=== PATIENT | female | born 1945 | race African-American/Black ===

== ENCOUNTER 2017-06-19 13:43 | Emergency (ER) | payer MEDICARE ==
[~2017-06-19] VITALS: Ht 162.6 cm; Wt 86.2 kg
[~2017-06-19 13:43] MED LIST: AMLO10TA2 PO; LOVA20TA2 PO
[2017-06-19 14:53] LABS: BASO # 0.1 x10^3/uL (0.0-0.2); BASO % 1 % (0-3); EOS % 3 % (0-3); HEMATOCRIT 35.9 % (36.0-47.0); HEMOGLOBIN 11.9 g/dL (12.0-15.5); LYMPH # 0.8 x10^3/uL (1.0-4.8); LYMPH % 22 % (24-48); MEAN CORPUSCULAR HEMOGLOBIN 29 pg (25-35); MEAN CORPUSCULAR HGB CONC 33 g/dL (31-37); MEAN CORPUSCULAR VOLUME 88 fL (79-100); MONO % 12 % (0-9); NEUT % 63 % (31-73); PLATELET COUNT 272 x10^3/uL (140-400); RED BLOOD COUNT 4.09 x10^6/uL (3.50-5.40); WHITE BLOOD COUNT 3.9 x10^3/uL (4.0-11.0)
[2017-06-19 15:07] VITALS: BP 174/70
[2017-06-19 15:11] LABS: CALCIUM 8.6 mg/dL (8.5-10.1); CREATININE 1.3 mg/dL (0.6-1.0); GFR 48.9; POTASSIUM 3.9 mmol/L (3.5-5.1)
--- NOTE | 2017-06-19 15:19 | ED.ADGEN ---
Past Medical History Past Medical History: Diabetes-Type II, High Cholesterol, Hypertension, Stroke Past Surgical History: No Surgical History Alcohol Use: None Drug Use: None Adult General Chief Complaint Chief Complaint: LOWER EXTREMITY SWELLING HPI HPI Patient is a 72 year old [woman, with history of hypertension, who presents emergency Department with complaints of recurrent swelling of the bilateral lower extremities. Patient states that the swelling is slightly worse on the left lower extremity more so than the right, but is bilateral, she states that it will get worse throughout the day, and then resolved at night. Patient states that she is concerned that her blood pressure medication is the source of the swelling, as the swelling first started about a week ago, after her blood pressure medication was adjusted, she is currently taking amlodipine/ benazepril, 10mg/40mg. she states she has not taken her blood pressure medication yesterday or this morning due to concerns that it is causing the swelling. She states currently she is not experiencing very much swelling, as as result overnight. She denies any chest pain, any shortness of breath, any nausea or vomiting, any other swelling, any rashes, any recent travel or surgery , history of DVT or PE, any other complaints. Review of Systems Review of Systems Constitutional: Denies fever or chills. [] Eyes: Denies change in visual acuity. [] HENT: Denies nasal congestion or sore throat. [] Respiratory: Denies cough or shortness of breath. [] Cardiovascular: Denies chest pain, complaining of edema in the bilateral lower extremities. GI: Denies abdominal pain, nausea, vomiting, bloody stools or diarrhea. [] : Denies dysuria. [] Musculoskeletal: Denies back pain or joint pain. [] Integument: Denies rash. [] Neurologic: Denies headache, focal weakness or sensory changes. [] Endocrine: Denies polyuria or polydipsia. [] Lymphatic: Denies swollen glands. [] Psychiatric: Denies depression or anxiety. [] Allergies Allergies Allergies Coded Allergies Type Severity Reaction Last Updated Verified No Known Drug Allergies 06/13/15 No Physical Exam Physical Exam Constitutional: Well developed, well nourished, no acute distress, non-toxic appearance. [] HENT: Normocephalic, atraumatic, bilateral external ears normal, oropharynx moist, no oral exudates, nose normal. [] Eyes: PERRLA, EOMI, conjunctiva normal, no discharge. [] Neck: Normal range of motion, no tenderness, supple, no stridor. [] Cardiovascular:Heart rate regular rhythm, no murmur [, S1, S2, rubs or gallops.] Lungs & Thorax: Bilateral breath sounds clear to auscultation , no wheezing, rhonchi, rales. No chest or crepitus or tenderness. [] Abdomen: Bowel sounds normal, soft, no tenderness, no rebound, rigidity, no guarding, no masses, no pulsatile masses. [] Skin: Warm, dry, no erythema, no rash. [] Back: No tenderness, no CVA tenderness. [] Extremities: No tenderness, no cyanosis, no clubbing, ROM intact, trace pedal edema bilaterally, no pitting anterior tibial edema at this time. [] Negative Tia's sign. Neurologic: Alert and oriented X 3, normal motor function, normal sensory function, no focal deficits noted. [] Psychologic: Affect normal, judgement normal, mood normal. [] Current Patient Data Vital Signs Vital Signs Date Time Temp Pulse Resp B/P (MAP) Pulse Ox O2 Delivery O2 Flow Rate FiO2 06/19/17 15:07 54 19 174/70 (104) 100 Room Air 06/19/17 14:06 98.0 98.0 Lab Values Laboratory Tests Test 06/19/17 14:44 White Blood Count 3.9 x10^3/uL (4.0-11.0) L Red Blood Count 4.09 x10^6/uL (3.50-5.40) Hemoglobin 11.9 g/dL (12.0-15.5) L Hematocrit 35.9 % (36.0-47.0) L Mean Corpuscular Volume 88 fL (79-100) Mean Corpuscular Hemoglobin 29 pg (25-35) Mean Corpuscular Hemoglobin Concent 33 g/dL (31-37) Red Cell Distribution Width 14.0 % (11.5-14.5) Platelet Count 272 x10^3/uL (140-400) Neutrophils (%) (Auto) 63 % (31-73) Lymphocytes (%) (Auto) 22 % (24-48) L Monocytes (%) (Auto) 12 % (0-9) H Eosinophils (%) (Auto) 3 % (0-3) Basophils (%) (Auto) 1 % (0-3) Neutrophils # (Auto) 2.4 x10^3uL (1.8-7.7) Lymphocytes # (Auto) 0.8 x10^3/uL (1.0-4.8) L Monocytes # (Auto) 0.5 x10^3/uL (0.0-1.1) Eosinophils # (Auto) 0.1 x10^3/uL (0.0-0.7) Basophils # (Auto) 0.1 x10^3/uL (0.0-0.2) Sodium Level 142 mmol/L (136-145) Potassium Level 3.9 mmol/L (3.5-5.1) Chloride Level 108 mmol/L (98-107) H Carbon Dioxide Level 29 mmol/L (21-32) Anion Gap 5 (6-14) L Blood Urea Nitrogen 14 mg/dL (7-20) Creatinine 1.3 mg/dL (0.6-1.0) H Estimated GFR (Cockcroft-Gault) 48.9 Glucose Level 139 mg/dL (70-99) H Calcium Level 8.6 mg/dL (8.5-10.1) SR-Mjf-P-Type Natriuretic Peptide 146 pg/mL (0-124) H Laboratory Tests 06/19/17 14:44 Laboratory Tests 06/19/17 14:44 EKG EKG EC: Sinus rhythm, heart rate 59 beats minute, upright axis, QTC of 432, MO 172, QRS of 90, no ST elevations or depressions, contour abnormalities noted in the lateral leads, with mild baseline artifact, abnormal ECG, does not meet any criteria. [] Radiology/Procedures Radiology/Procedures Not indicated. [] Course & Med Decision Making Course & Med Decision Making Pertinent Labs and Imaging studies reviewed. (See chart for details) Patient well-appearing, with trace pedal edema noted, no tenderness in the calves, history, examination findings that are concerning for occult DVT or other abnormality. I did discuss with patient that potentially medications could cause swelling extremities, and recommended that she continue to take medications as directed by her primary care provider, she voiced understanding. We proceeded with basic laboratory studies and a proBNP, which revealed a creatinine of 1.3, which is consistent with patient's prior, and no other concerning findings. I did speak with Dr. Kovacs, the patient's primary care physician, and reviewed laboratory studies and examination. She requests the patient be instructed to discontinue the amlodipine/benzepril, as patient's blood pressures remain stable emergency department, 150s to 160s over 70s, and patient is asymptomatic, she requests the patient follow-up with with her in the office tomorrow for evaluation. She states that if the patient is unable to follow-up tomorrow, the patient be given a prescription for losartan 50 mg to be taken once daily, to be used if follow-up is delayed. I did discuss this at length with patient at bedside, patient voiced agreement and understanding with this plan, she was also given instructions and precautions, to return for concerning symptoms, which she voiced understanding as well. Patient discharged home in stable condition with prescription and plan as stated. Dragon Disclaimer Dragon Disclaimer This electronic medical record was generated, in whole or in part, using a voice recognition dictation system. Departure Impression: Primary Impression: Pedal edema Disposition: 01 HOME, SELF-CARE Condition: STABLE Scripts Losartan Potassium (LOSARTAN POTASSIUM) 50 Mg Tablet 50 MG PO DAILY, #14 TAB Prov: NANCI MESA DO 06/19/17 NANCI MESA DO Jun 19, 2017 15:19
[2017-06-19] MEDS ORDERED: LOSA50TA6 PO (15:57)
--- NOTE | 2017-06-20 06:09 | EKG ---
[facility] [address] [place] [address] Test Date: 2017-06-19 Test Time: 14:32:32 Pat Name: KEVIN ROMERO Department: Room: Gender: F Early Morning: : 1945 Requested By: NANCI MESA Order Number: [id number] Reading MD: Jevon Frye Measurements Intervals [place] Rate: 59 P: 27 NH: 172 QRS: 10 QRSD: 90 T: 87 QT: 432 QTc: 432 Interpretive Statements SINUS RHYTHM T ABNORMALITY IN HIGH LATERAL LEADS RI6.01 Unconfirmed report Compared to ECG 06/13/2015 12:43:49 No significant changes Electronically Signed On 06-20-2017 17:36:58 CDT by Jevon Frye
== END 2017-06-19 16:25 | disposition home or self-care (01) ==
LOC: ER 13:43
DX: R60.0 Localized edema (principal); E11.9 Type 2 diabetes mellitus without complications; E78.00 Pure hypercholesterolemia, unspecified; I10 Essential (primary) hypertension; Z86.73 Personal history of transient ischemic attack (TIA), and cerebral infarction without residual deficits
CPT/HCPCS: 36415; 80048; 83880; 85027; 93005; 99285-25

== ENCOUNTER → 2017-07-08 | Outpatient (CLI) | payer MEDICARE ==
[2017-06-19 15:07] VITALS: BP 174/70
[~2017-07-08] MED LIST changes: +LOSA50TA6 PO
--- NOTE | 2017-07-08 16:25 | CARD ---
APPROVED REPORT EXAM: Two-dimensional and M-mode echocardiogram with Doppler and color Doppler. Other Information Quality : GoodHR: 57bpm Rhythm : Bradycardia INDICATION Swelling of lower extremity 2D DIMENSIONS RVDd3.3 (2.9-3.5cm)Left Atrium(2D)3.8 (1.6-4.0cm) IVSd1.5 (0.7-1.1cm)Aortic Root(2D)2.8 (2.0-3.7cm) LVDd4.4 (3.9-5.9cm)LVOT Diameter2.2 (1.8-2.4cm) PWd1.2 (0.7-1.1cm)LVDs2.8 (2.5-4.0cm) FS (%) 35.8 %SV56.9 ml LVEF(%)65.5 (>50%) Aortic Valve AoV Peak Romel.145.4cm/sAoV VTI28.8cm AO Peak GR.8.5mmHgLVOT Peak Romel.129.3cm/s AO Mean GR.4mmHgAVA (VMAX)3.34cm2 Mitral Valve MV E Cftpadnj64.2cm/sMV E Peak Gr.3mmHg MV DECEL [id number] A Rakfvijp46.6cm/s MV E Mean Gr.1mmHgE/A Ratio0.6 MV A [id number] Pulmonary Valve PV Peak Lyfedsen29.5cm/s Tricuspid Valve TR P. Vfpshana317dm/sTR Peak Gr.26mmHg Pulmonary Vein S1 Rigyhsgj51.3cm/sD2 Qvoazrcm97.6cm/s PVa [id number] LEFT VENTRICLE The left ventricle is normal size. There is normal left ventricular wall thickness. The left ventricu lar systolic function is normal and the ejection fraction is within normal range. The Ejection Fracti on is 60-65%. There is normal LV segmental wall motion. Transmitral Doppler flow pattern is Grade I-a bnormal relaxation pattern. RIGHT VENTRICLE The right ventricle is normal size. There is normal right ventricular wall thickness. The right ventr icular systolic function is normal. ATRIA The left atrium size is normal. The right atrium size is normal. The interatrial septum is intact wit h no evidence for an atrial septal defect or patent foramen ovale as noted on 2-D or Doppler imaging. AORTIC VALVE The aortic valve is mildly thickened. The aortic valve is trileaflet. Doppler and Color Flow revealed trace to mild aortic regurgitation. There is no significant aortic valvular stenosis. MITRAL VALVE The mitral valve leaflets are mildly calcified. There is no evidence of mitral valve prolapse. There is no mitral valve stenosis. Doppler and Color Flow revealed no mitral valve regurgitation noted. TRICUSPID VALVE Doppler and Color Flow revealed mild tricuspid regurgitation. The pulmonary artery systolic pressure is estimated at 29 mmHg. There is no pulmonary hypertension. PULMONIC VALVE The pulmonic valve is not well visualized but appears to open adequately. Doppler and Color Flow reve aled mild pulmonic valvular regurgitation. There is no pulmonic valvular stenosis by spectral Doppler . GREAT VESSELS The aortic root is normal in size. The ascending aorta is normal in size. The pulmonary artery is nor mal. The IVC is normal in size and collapses >50% with inspiration. PERICARDIAL EFFUSION There is no evidence of significant pericardial effusion. Critical Notification Critical Value: No <Conclusion> The left ventricular systolic function is normal and the ejection fraction is within normal range. Th e Ejection Fraction is 60-65%. There is normal LV segmental wall motion.
== END | disposition home or self-care (01) ==
LOC: ECHO 12:31
PROVIDERS: ATTEND Internal Medicine
DX: I37.1 Nonrheumatic pulmonary valve insufficiency (principal); I07.1 Rheumatic tricuspid insufficiency; M79.89 Other specified soft tissue disorders
CPT/HCPCS: 93306

== ENCOUNTER → 2019-06-01 | Day surgery (SDC) | payer MEDICARE ==
[~2019-06-01] MED LIST changes: -AMLO10TA2 PO; +AMLO10TA8 PO; +IV RINGERS,LACTATED 1000ML 1,000 ML IV SCH; +LIDOCAINE 1% PF 2 ML VIAL. ID PRN; +LIDOCAINE 2% PF 5 ML VIAL. ONE; +LOSA-73 PO; -LOSA50TA6 PO; +MIDAZOLAM HCL/PF 2 MG/2 ML VIAL. IV PRN; +PROPOFOL 20 ML IV ONE; +fentaNYL PF VIAL 100 MCG/2 ML VIAL IV PRN
--- NOTE | 2019-06-01 10:14 | CONS ---
DATE OF CONSULTATION: 06/01/2019 GASTROINTESTINAL CONSULTATION REASON FOR CONSULTATION: Colorectal screening. REFERRING PHYSICIAN: Belinda MORLEY HISTORY OF PRESENT ILLNESS: This is a 74-year-old -[place] female whose past medical history is significant for hypertension, status post CVA 8 years ago, was seen for colonoscopy. Bowel habits are regular without diarrhea or constipation. There has been no melena and/or hematochezia. Weight and appetite are stable. There has been no diarrhea or constipation. No family history of colon cancer is noted. She is otherwise without additional complaints. PAST MEDICAL HISTORY: Hypertension, hyperlipidemia, status post CVA. MEDICATIONS: Include amlodipine 10 mg daily and Lovastatin 20 mg daily. ALLERGIES: None. SOCIAL HISTORY: She is retired: Nonsmoker, nondrinker. FAMILY HISTORY: Noncontributory. REVIEW OF SYSTEMS: HEENT: There is no decrease in visual acuity issues. CARDIAC: There is a history of hypertension. ENDOCRINE: History of hyperlipidemia. NEUROLOGIC: History of CVA. PSYCHIATRIC: No mood swings, depression, insomnia. GASTROINTESTINAL: See history of present illness. HEMATOLOGIC: No bleeding, bruising, coagulopathy. DERMATOLOGIC: No skin rashes or pruritus. PHYSICAL EXAMINATION: GENERAL: Reveals a well-nourished, well-developed -[place] female, who is alert, cooperative, in no acute distress. VITAL SIGNS: Temperature is 97.5, pulse 70, respirations 20. HEENT: Normocephalic, atraumatic head. Pupils and extraocular muscles are not tested. Sclerae anicteric. NECK: Supple. LUNGS: Clear. CARDIOVASCULAR: Reveals an S1, S2 without S3, S4 or appreciable murmur. ABDOMEN: Soft abdomen, normal bowel sounds without appreciable hepatosplenomegaly. EXTREMITIES: Reveals no cyanosis, clubbing, or edema. IMPRESSION: Colorectal screening is warranted at this time. Risks and benefits of procedure including risk of hemorrhage and perforation during the operation were discussed. The patient is willing to proceed. I would like to thank for consulting for allowing us to consult and participate in the patient's care. KAYLIE CHAVEZ MD DR: PAMELA/brenda JOB#: [id number] / [id number] BELINDA Queen
[2019-06-01 10:20] VITALS: BP 153/70
== END ==
LOC: SURG 08:09
PROVIDERS: ATTEND Internal Medicine Gastroenterology
DX: Z12.11 Encounter for screening for malignant neoplasm of colon (principal); K64.0 First degree hemorrhoids; K63.89 Other specified diseases of intestine; I10 Essential (primary) hypertension; E78.5 Hyperlipidemia, unspecified; Z86.73 Personal history of transient ischemic attack (TIA), and cerebral infarction without residual deficits
CPT/HCPCS: 45378; J2001; J2704

== ENCOUNTER 2021-10-19 20:40 | Emergency (ER) | payer MEDICARE ==
[~2021-10-19] VITALS: Ht 162.6 cm; Wt 81.8 kg
[~2021-10-19 20:40] MED LIST changes: +AMLO-187 PO; -AMLO10TA8 PO; -IV RINGERS,LACTATED 1000ML 1,000 ML IV SCH; -LIDOCAINE 1% PF 2 ML VIAL. ID PRN; -LIDOCAINE 2% PF 5 ML VIAL. ONE; -MIDAZOLAM HCL/PF 2 MG/2 ML VIAL. IV PRN; -PROPOFOL 20 ML IV ONE; -fentaNYL PF VIAL 100 MCG/2 ML VIAL IV PRN
[2021-10-19] MEDS ORDERED: AMLO-187 PO (22:18)
[2021-10-19] MEDS: cloNIDine HCL 0.1 MG TABLET PO ONE (22:19)
--- NOTE | 2021-10-19 22:19 | PHYS DOC ---
Past Medical History Past Medical History: Diabetes-Type II, High Cholesterol, Hypertension, Stroke (RADHA BOTELLO [employer]) Past Surgical History: Other Additional Past Surgical Histo: STROKE (RADHA BOTELLO [employer]) Smoking Status: Never Smoker Alcohol Use: None Drug Use: None (RADHA BOTELLO [employer]CH[employer]IC) General Adult EDM: Chief Complaint: HYPERTENSION HPI: HPI: Patient is a 76 year old female with a history of diabetes type 2, hypertension, high cholesterol, presenting to the ED today requesting a prescription for amlodipine. Patient states she takes it for hypertension. She states she lost the medicine 1 week ago. She states today she took her blood pressure at home it was 180 systolic, she does not remember diastolic number. Denies any chest pain or shortness of breath. She states she went to the doctor's office today but the doctor is out of town (RADHA BOTELLO [employer]CH[employer]) Review of Systems: Review of Systems: Constitutional: Denies fever or chills. [] Eyes: Denies change in visual acuity. [] HENT: Denies nasal congestion or sore throat. [] Respiratory: Denies cough or shortness of breath. [] Cardiovascular: Reports high blood pressure. Denies chest pain or edema. [] GI: Denies abdominal pain, nausea, vomiting, bloody stools or diarrhea. [] : Denies dysuria. [] Musculoskeletal: Denies back pain or joint pain. [] Integument: Denies rash. [] Neurologic: Denies headache, focal weakness or sensory changes. [] Psychiatric: Denies depression or anxiety. [] (RADHA BOTELLO [employer]) Heart Score: C/O Chest Pain: N/A Risk Factors: Risk Factors: DM, Current or recent (<one month) smoker, HTN, HLP, family history of CAD, obesity. Risk Scores: Score 0 - 3: 2.5% MACE over next 6 weeks - Discharge Home Score 4 - 6: 20.3% MACE over next 6 weeks - Admit for Clinical Observation Score 7 - 10: 72.7% MACE over next 6 weeks - Early Invasive Strategies (AYANRADHA [employer]) Current Medications: Current Medications Medications (Trade) Dose Ordered Sig/Laisha Start Time Stop Time Status Last Admin Dose Admin Clonidine HCl (Catapres) 0.1 mg 1X ONCE 10/19/21 22:15 10/19/21 22:16 (RADHA BOTELLO [employer]) Allergies: Allergies: Allergies Coded Allergies Type Severity Reaction Last Updated Verified No Known Drug Allergies 06/01/19 No (RADHA BOTELLO [employer]) Physical Exam: PE: Constitutional: Well developed, well nourished, no acute distress, non-toxic appearance. [] HENT: Normocephalic, atraumatic, bilateral external ears normal, oropharynx moist, no oral exudates, nose normal. [] Eyes: PERRLA, EOMI, conjunctiva normal, no discharge. [] Neck: Normal range of motion, no tenderness, supple, no stridor. [] Cardiovascular:Heart rate regular rhythm, no murmur [] Lungs & Thorax: Bilateral breath sounds clear to auscultation [] Abdomen: Bowel sounds normal, soft, no tenderness, no masses, no pulsatile masses. [] Skin: Warm, dry, no erythema, no rash. [] Back: No tenderness, no CVA tenderness. [] Extremities: No tenderness, no cyanosis, no clubbing, ROM intact, no edema. [] Neurologic: Alert and oriented X 3, normal motor function, normal sensory function, no focal deficits noted. [] Psychologic: Affect normal, judgement normal, mood normal. [] (RADHA BOTELLO [employer]) Current Patient Data: Vital Signs: Vital Signs Date Time Temp Pulse Resp B/P (MAP) Pulse Ox O2 Delivery O2 Flow Rate FiO2 10/19/21 20:58 98.0 56 20 162/76 (104) 97 Room Air 98.0 (RADHA BOTELLO [employer]) EKG: EKG: [] (RADHA BOTELLO [employer]CH[employer]IC) Radiology/Procedures: Radiology/Procedures: [] (RADHA BOTELLO [employer]IC) Course & Med Decision Making: Course & Med Decision Making Pertinent Labs and Imaging studies reviewed. (See chart for details) This is a 76-year-old female patient with history of hypertension presenting today requesting a refill of amlodipine. Patient lost the medicine a week ago. Blood pressure in the ED is 189/83, patient has no chest pain, shortness of breath or headache blood pressure medicine given in the ED. Patient was given prescription for amlodipine. Encouraged to get an appointment with the PCP (RADHA BOTELLO APRN) Course & Med Decision Making Patients Care and treatment plan provided by ER Nurse Practitioner. I was available for consult. Patient's chart reviewed. (WALTER WINN DO) David Disclaimer: David Disclaimer: This electronic medical record was generated, in whole or in part, using a voice recognition dictation system. (RADHA OBTELLO APRN) Departure Departure Impression: Primary Impression: Medication refill Additional Impression: Hypertension Qualified Codes: I10 - Essential (primary) hypertension Disposition: HOME / SELF CARE / HOMELESS Condition: STABLE Referrals: UNKNOWN PCP NAME (PCP) follow up with your doctor as soon as you can Patient Instructions: Hypertension Additional Instructions: We gave you a prescription for amlodipine, take it as prescribed. Please contact your primary care doctor tomorrow and set up an office appointment as soon as you can Scripts Amlodipine Besylate (AMLODIPINE BESYLATE) 10 Mg Tablet 10 MG PO DAILY, #30 TAB Prov: RADHA BOTELLO APRN 10/19/21 RADHA BOTELLO APRN Oct 19, 2021 22:19 WALTER WINN DO Oct 21, 2021 03:34
[2021-10-19 22:30] VITALS: BP 177/72
== END 2021-10-19 22:35 | disposition home or self-care (01) ==
LOC: ER 20:40
DX: I10 Essential (primary) hypertension (principal); Z76.0 Encounter for issue of repeat prescription; E11.9 Type 2 diabetes mellitus without complications; E78.00 Pure hypercholesterolemia, unspecified; Z86.73 Personal history of transient ischemic attack (TIA), and cerebral infarction without residual deficits
CPT/HCPCS: 99283